=== PATIENT | male | born 1950 | race Caucasian/White ===

== ENCOUNTER → 2017-01-20 | Outpatient (CLI) | payer BC ==
[~2017-01-20] MED LIST: AMLO-110 PO; ASPCH81X PO; CZR50 PO; GLC/500 PO; LIRA18IN SQ; METF1TAB53 PO; MULT-506 PO; ROSU5TAB PO
== END | disposition home or self-care (01) ==
LOC: C.RDSM 08:32
PROVIDERS: ATTEND Physical Medicine & Rehabilitation Sports Medicine
DX: M25.562 Pain in left knee (principal)

== ENCOUNTER → 2017-01-20 | Outpatient (CLI) | payer BC ==
[2017-01-20 12:02] LABS: SYNOVIAL FLUID APPEARANCE CLEAR; SYNOVIAL FLUID COLOR YELLOW; SYNOVIAL FLUID MONONUC RELAT 82.7 %; SYNOVIAL FLUID POLYNUC RELAT 17.3 %
== END | disposition home or self-care (01) ==
LOC: C.LABSPEC 10:50
PROVIDERS: ATTEND Orthopaedic Surgery
DX: M25.562 Pain in left knee (principal)

== ENCOUNTER 2017-02-26 06:03 | Inpatient (IN) | payer BC ==
[2017-01-31 10:36] VITALS: BMI 38.0
--- NOTE | 2017-01-31 11:01 | PAT Medication Instructions ---
Service Date Jan 31, 2017. Current Home Medication List Amlodipine (Norvasc), 5 MG PO QAM Aspirin (Aspirin Chewable), 81 MG PO QPM Liraglutide (Victoza), 1.2 ML SQ QAM Losartan Potassium (Losartan Potassium), 50 MG PO HS Metformin Hcl (Glucophage), 500 MG PO QAM Metformin Hcl (Glucophage Ext Rel), 1,000 MG PO QPM Multivitamin (Multivitamin), 1 TAB PO QAM Rosuvastatin Calcium (Crestor), 5 MG PO QPM Medication Instructions For Your Scheduled Surgery - Hold the following medications 48 hours prior to surgery: Metformin Hcl (Glucophage), 500 MG PO QAM Metformin Hcl (Glucophage Ext Rel), 1,000 MG PO QPM - Hold the following medications the morning of surgery: Multivitamin (Multivitamin), 1 TAB PO QAM - Take the following medications the morning of surgery with a sip of water OTHERWISE NOTHING TO EAT OR DRINK AFTER MIDNIGHT: Amlodipine (Norvasc), 5 MG PO QAM Liraglutide (Victoza), 1.2 ML SQ QAM - Take the following medications as scheduled the night before surgery: Rosuvastatin Calcium (Crestor), 5 MG PO QPM Aspirin (Aspirin Chewable), 81 MG PO QPM - Do not take the following medications the night before surgery: Losartan Potassium (Losartan Potassium), 50 MG PO HS If you have any questions please call us at [phone] or [phone] or [phone]
--- NOTE | 2017-01-31 11:46 | DIAGNOSTIC IMAGING REPORT ---
CHEST PREADMISSION(PA/LAT) HISTORY: 66 years-old Male PAT preadmission study. Preoperative study for knee surgery. COMPARISON: None available TECHNIQUE: Frontal and lateral views of the chest FINDINGS: Cardiomediastinal and hilar silhouettes are within normal limits. There is mild right hemidiaphragmatic elevation. No pneumothorax, pleural effusion, focal airspace consolidation or overt pulmonary edema. Bones appear intact. Cannulated screw is noted about the right shoulder. IMPRESSION: No acute cardiopulmonary process. The above report was generated using voice recognition software. It may contain grammatical, syntax or spelling errors. Electronically signed by: Hermelindo Reyes M.D. 01/31/2017 11:45 AM Dictated Date/Time: 01/31/2017 11:44 AM
[2017-01-31 12:15] LABS: BASO % 0.4 %; BASO ABS # 0.04 K/uL (0-0.2); COMPLETE YES; EOS % 1.9 %; HEMATOCRIT 41.7 % (42-52); IG% 0.2 %; LYMPH % 22.2 %; MEAN CELL VOLUME 83.7 fL (80-100); MEAN CORPUSCULAR HEMOGLOBIN 29.7 pg (25-34); MEAN CORPUSCULAR HGB CONC 35.5 g/dl (32-36); MEAN PLATELET VOLUME 11.4 fL (7.4-10.4); MONO % 7.9 %; NEUT % 67.4 %; PLATELET COUNT 232 K/uL (130-400); RED BLOOD COUNT 4.98 M/uL (4.7-6.1); WHITE BLOOD COUNT 9.02 K/uL (4.8-10.8)
[2017-01-31 12:24] LABS: URINE APPEARANCE CLEAR (CLEAR); URINE BILIRUBIN NEG (NEG); URINE COLOR DK YELLOW; URINE EPITHELIAL CELL AUTO >30 /lpf (0-5); URINE NITRITE NEG (NEG); URINE PH 5.5 (4.5-7.5); URINE SPECIFIC GRAVITY 1.028 (1.000-1.030); UROBILINOGEN NEG (NEG)
[2017-01-31 12:27] LABS: MANUAL MICROSCOPIC REQUIRED? NO; REVIEW REQ? NO
[2017-01-31 12:29] LABS: PARTIAL THROMBOPLASTIN RATIO 1.1; PROTHROMBIN TIME (PATIENT) 10.7 SECONDS (9.0-12.0)
[2017-01-31 13:24] LABS: BUN/CREATININE RATIO 19.5 (10-20); CALCIUM 10.1 mg/dl (8.5-10.1); CREATININE 1.1 mg/dl (0.60-1.40); POTASSIUM 4.4 mmol/L (3.5-5.1)
--- NOTE | 2017-02-10 17:55 | HISTORY & PHYSICAL EXAMINATION ---
DATE OF ADMISSION: 02/26/2017 CHIEF COMPLAINT: Left knee DJD. HISTORY OF PRESENT ILLNESS: This 66-year-old white male presents for evaluation of his left knee. He has had left knee pain since 03/05/2016. He was climbing up a ladder to his tree stand at that time and felt a pop in his knee. He had pain and swelling at that point. He had subsequent conservative care with physical therapy and cortisone injection without lasting relief. He eventually had an MRI indicating a possible medial meniscal tear. He had knee arthroscopy with drilling of his medial tibial plateau and bone grafting using allograft. The pain never resolved and the swelling continued. He eventually had a CT scan showing fracture of the medial tibial plateau with depression of the articular surface. The pain persists. It is affecting his ADLs. Pain is worse with any weightbearing activity. He elects to proceed with total knee arthroplasty in hopes of alleviating his pain. Preoperative imaging has been obtained. No numbness or tingling. PAST MEDICAL HISTORY: Significant for hypertension, elevated cholesterol, type 2 diabetes, history of kidney stones, and osteoarthritis. PAST SURGICAL HISTORY: Left knee arthroscopy with tibial bone grafting, right shoulder surgery, trigger finger releases to both hands, tonsillectomy, cholecystectomy, carpal tunnel release, back surgery. ALLERGIES: NKDA. CURRENT MEDICATIONS: Amlodipine 5 mg p.o. daily, aspirin 81 mg p.o. daily, losartan 50 mg p.o. daily, multivitamin daily, rosuvastatin 5 mg p.o. daily, and Victoza 1.8 mg daily, metformin 1000 mg p.o. daily, metformin 500 mg p.o. daily. SOCIAL HISTORY: The patient is retired. 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 No tobacco use, no ETOH use. . REVIEW OF SYSTEMS: Significant for diabetes, otherwise unremarkable. Significant for above-stated conditions, otherwise unremarkable. PHYSICAL EXAMINATION: GENERAL: Well-developed, well-nourished middle aged white male in no acute distress. Sitting on a bed. Alert and oriented. Large individual. SKIN: Warm and dry with good turgor. No rashes or lesions. No ecchymosis or erythema. Well-healed surgical scars on the left knee and right shoulder. HEENT: Normocephalic, atraumatic. Eyes PERRLA, EOMI. Nares patent bilaterally without turbinate enlargement. Oropharynx without erythema or exudate. No lesions noted. Uvula midline. Oral mucosa moist. Good dentition. Dental caps and fillings are noted. HEART: RRR. No MGR. LUNGS: Clear to auscultation bilaterally. No crackles, rhonchi or wheezing. Good air movement. ABDOMEN: Bowel sounds present x4, soft, nontender. No organomegaly. No masses. MUSCULOSKELETAL: Left knee has full terminal extension. Flexion to greater than 100 degrees. Strength is 5/5 with good quad tone. Small joint effusion is present. Stable collateral ligaments. Focal discomfort with palpation over the medial joint line. Ambulatory with a slight limp. No defect in the patellar tendon or quadriceps tendon. NEUROLOGIC: Cranial nerves II through XII are intact. Gross sensation is intact across the lower extremities by soft touch. Peripheral pulses are 2+. DATA: Radiographic imaging previously obtained showed a depression of the medial tibial plateau along with evidence of prior bone grafting. He has medial joint space narrowing and periarticular osteophytes, as well as subchondral sclerosis. IMPRESSION: Left knee end-stage degenerative joint disease. PLAN: Informed written consent will be obtained on the day of surgery. Anticipate discharge to home with outpatient PT. Prescription has been provided. He may reconsider and choose home health. He already has a walker. Preoperative lab work, EKG, and chest x-ray have been ordered. Medical clearance has been requested from his PCP, Dr. Anders. Postoperative prescriptions for Percocet and Coumadin will be provided at discharge from the hospital. VALENTIN
[~2017-02-26] VITALS: Ht 182.9 cm; Wt 128.9 kg
[2017-02-26] VITALS (9 sets, daily range): BP systolic 130–159; BP diastolic 73–88; PULSE 73–102; TEMP 36.4–36.9; O2SAT 95–99; Ht 182.9 cm; Wt 128.9 kg
[~2017-02-26 06:03] MED LIST changes: +CEFAZOLIN 3000MG IV PUSH 15 ML IV SCH; +LACTATED RINGER'S 1000ML 1,000 ML IV SCH; +LACTATED RINGER'S 1000ML 500 ML IV ONE; +LACTATED RINGER'S 1000ML IV SCH; +ROPIVACAINE 5MG/ML 30 ML 150 MG, BUPIVACAINE/EPINEPHR 0.5% MPF 30 ML, KETOROLAC TROMETH... INFIL SCH; +TRANEXAMIC ACID INJ 1,000 MG in SODIUM CHLORIDE 0.9% 100ML 100 ML IV SCH
--- NOTE | 2017-02-26 06:27 | History & Physical Bridge Note ---
H&P Re-Evaluation Bridge Note: I have examined the patient, reviewed the History & Physical and in the interval since the performance of the History & Physical I have noted the following changes of clinical significance: consent reviewed.No changes noted
[2017-02-26] MEDS: TRANEXAMIC ACID INJ 1,000 MG in SYRINGE 0 ML IV SCH ×2 (06:30→07:59)
[2017-02-26] MEDS ORDERED: MIDAZOLAM HCL 1 MG/ML 2ML VIAL ONE ×2 (07:24)
[2017-02-26] MEDS ORDERED: FENTANYL CITRATE INJ 50 MCG/1 ML 2 ML VIAL ONE (07:24)
[2017-02-26] MEDS ORDERED: LIDOCAINE HCL 2% 2 ML VIAL (20MG/ML) ONE (07:25)
[2017-02-26] MEDS ORDERED: EpHEDrine SULFATE 50MG/5ML SYR ONE (07:25)
[2017-02-26] MEDS ORDERED: PROPOFOL IV EMULSION 10 MG/ML 20 ML VIAL IV ONE ×2 (07:25→09:28)
[2017-02-26] MEDS ORDERED: PHENYLEPHRINE 100MCG/ML 5ML SYR ONE (07:25)
[2017-02-26] MEDS ORDERED: BUPIVACAINE 0.5 % 5 MG/1 ML PF 10ML VIAL ONE (07:31)
[2017-02-26] MEDS ORDERED: BUPIVACAINE 0.25% 30 ML VIAL ONE (07:32)
[2017-02-26] MEDS ORDERED: ORTHO JOINT ANESTHETIC ONE (08:18)
[2017-02-26] MEDS ORDERED: POVIDONE-IODINE OP SOLN 30 ML BTL ONE (08:19)
[2017-02-26] MEDS ORDERED: ATROPINE SULFATE 0.1 MG/ML 5ML SYR IV PRN (08:45)
[2017-02-26] MEDS ORDERED: FENTANYL CITRATE INJ 50 MCG/1 ML 2 ML VIAL IV PRN (08:45)
[2017-02-26] MEDS ORDERED: ONDANSETRON INJ 2 MG/ML 2 ML VIAL IV PRN ×2 (08:45→10:15)
[2017-02-26] MEDS ORDERED: EpHEDrine SULFATE INJ 50 MG/ML AMP IV PRN (08:45)
[2017-02-26] MEDS ORDERED: SODIUM CHLORIDE 0.9% 1000ML 1,000 ML IV SCH (10:12)
[2017-02-26] MEDS ORDERED: TRANEXAMIC ACID INJ 1,000 MG in SODIUM CHLORIDE 0.9% 100ML 100 ML IV SCH (10:15)
[2017-02-26] MEDS ORDERED: TAMSULOSIN HCL 0.4 MG CAP PO PRN (10:15)
[2017-02-26] MEDS ORDERED: METOCLOPRAMIDE HCL INJ 5 MG/ML 2 ML VIAL IV PRN (10:15)
[2017-02-26] MEDS ORDERED: BISACODYL 10 MG SUPP PR PRN (10:15)
[2017-02-26] MEDS ORDERED: ALUMINUM/MAGNESIUM/SIMETH (MAALOX MAX) 30 ML UDC PO PRN (10:15)
[2017-02-26] MEDS ORDERED: OXYCODONE HCL IR 5 MG TAB (IMMEDIATE RELEASE) PO PRN (10:15)
[2017-02-26] MEDS ORDERED: MoRPHine SULFATE 2 MG/ML CARP IV PRN (10:15)
[2017-02-26] MEDS ORDERED: MAGNESIUM HYDROXIDE SUSP 30 ML UDC PO PRN (10:15)
[2017-02-26] MEDS ORDERED: ACETAMINOPHEN 325 MG TAB PO PRN (10:15)
[2017-02-26] MEDS ORDERED: DiphenhydrAMINE HCL 50 MG/ML VIAL IV PRN (10:15)
--- NOTE | 2017-02-26 10:26 | OPERATIVE REPORT ---
DATE OF OPERATION: 02/26/2017 SURGEON: Garth Portillo MD. [employer] HISTORY PROFESSOR: Jamey Suh PA-C. No resident or fellow available. PREOPERATIVE DIAGNOSIS: Osteoarthritis, left knee. POSTOPERATIVE DIAGNOSIS: Osteoarthritis, left knee.. OPERATION PERFORMED: Cemented left total knee replacement. PERIOPERATIVE SITUATION: Medically cleared male with intractable knee pain who had failed a chondral supportive procedure with calcium pyrophosphate done elsewhere, has end-stage disease. At this point in time, he has been worked up for infection and there is nothing there. Cultures obtained preoperatively revealed nothing. At this point in time wants to proceed with surgical treatment. Options were made to have additional implants as needed based on the findings at time of surgery. SUMMARY OF IMPLANTS: Size 5 posterior cruciate substituting femur, size 5 tibial rotating platform tray, oval domed 3 pegged patella size 41, tibial insert size 5, 12.5 mm thick, posterior cruciate substituting. Two bags of Palacos G cement. DESCRIPTION OF PROCEDURE: The patient appropriately identified, site verified, consent verified, 3 grams of Ancef confirmed as being given. The left lower extremity was prepped and draped in usual routine fashion. He had a flexion contracture, so it was elected to resect the distal femur to 14 mm. Tourniquet was inflated to 300 mmHg for a total of approximately 55 minutes. Anterior exposure of the knee then made. Parapatellar arthrotomy performed. Appropriate synovectomy completed, soft tissue releases completed. Distal femur entered, cruciates resected. The distal femur then resected to 14 mm. Proximal tibia then resected 4 mm to size 5 fit well on the tibia. The extension gap was excellent. The size 5 cutting block applied and the anterior, posterior condylar and chamfer cuts then made and the flexion gap was checked. It was excellent. The box cut was then made and then the size 5 trial fit well. The tibia was then broached and reamed to a 5. Excellent coverage was obtained. The area of the old injection was solidified. There was no sign of any stress fracture below it. The tibia again was impacted into position and with the 12.5 mm spacer there was excellent mid range stability and full extension and full flexion. There was no varus valgus laxity at 0 to 30 degrees. The patella was then sized to 41, it was resected leaving 15 mm and then the seating holes made and the trial tracked well. All trial implants were then removed. The wound was then injected with the Orthomix. It was then irrigated with Pulsavac, irrigated with Betadine, irrigated with Pulsavac and permanent cemented into position. After 12 minutes, the tourniquet deflated. After 14 minutes, the knee then flexed. Minor cement removal occurred, irrigated with Betadine, a permanent liner seated, the knee reduced and closed using #1 Ethibond, #1 Vicryl, 2-0 Vicryl and stainless steel clips. The patient tolerated the procedure well. ESTIMATED BLOOD LOSS: 50 mL. CRYSTALLOID: Per anesthesia report. DEEP VENOUS THROMBOSIS PROPHYLAXIS: Per protocol. I attest to the content of the Intraoperative Record and any orders documented therein. Any exception s are noted below.
--- NOTE | 2017-02-26 10:53 | DIAGNOSTIC IMAGING REPORT ---
LEFT KNEE 2 VIEWS CLINICAL HISTORY: Degenerative arthritis. Postoperative study. COMPARISON: 01/20/2017 DISCUSSION: There are postsurgical changes of a total left knee arthroplasty and patellar resurfacing. The femoral and tibial components appear well seated. There are overlying skin tenisha. There is air within the soft tissues consistent with recent surgery. IMPRESSION: Postsurgical changes of a total left knee arthroplasty. Electronically signed by: Marvin Ha M.D. 02/26/2017 10:52 AM Dictated Date/Time: 02/26/2017 10:50 AM
--- NOTE | 2017-02-26 11:05 | Anesthesiology Progress Note ---
Anesthesia Post Op Note Date & Time Feb 26, 2017 at 11:05 Vital Signs Pain Intensity: 0 Vital Signs Past 12 Hours Date Time Temp Pulse Resp B/P (MAP) Pulse Ox O2 Delivery O2 Flow Rate FiO2 02/26/17 11:00 77 18 141/77 98 Nasal Cannula 2 02/26/17 10:50 36.3 78 13 134/78 98 Nasal Cannula 2 02/26/17 10:40 80 19 124/79 98 Nasal Cannula 2 02/26/17 10:30 87 19 145/96 95 Nasal Cannula 2 02/26/17 10:20 91 17 118/70 99 Oxymask 10 02/26/17 10:12 36.5 86 16 123/66 100 Oxymask 10 02/26/17 06:50 36.9 86 20 157/85 99 Room Air Notes Mental Status: alert / awake / arousable, participated in evaluation Pt Amnestic to Procedure: Yes Nausea / Vomiting: adequately controlled Pain: adequately controlled Airway Patency, RR, SpO2: stable & adequate BP & HR: stable & adequate Hydration State: stable & adequate Neuraxial Anesthesia: was administered, sensory block is resolving Anesthetic Complications: no major complications apparent
[2017-02-26] MEDS ORDERED: MoRPHine SULFATE 4 MG/ML 1 ML CARP\\VIAL IV PRN (11:45)
--- NOTE | 2017-02-26 12:24 | Progress Note ---
Subjective Date of Service: Feb 26, 2017. Subjective Pt evaluation today including: conversation w/ patient, conversation w/ family , physical exam, chart review, lab review, review of inpatient medication list feeling good post op no significant pain yet notes sugars typically well controlled - last A1c 7.2% just a few weeks ago. fasting sugars tend to be a bit higher as high as 160, rest of the day checks premeal and typically around 100. does not check after eating, although has encouraged him to do so. no other complaints at this time Review of Systems all other ROS otherwise negative except for as above Objective Vital Signs Date Time Temp Pulse Resp B/P (MAP) Pulse Ox O2 Delivery O2 Flow Rate FiO2 02/26/17 12:00 73 18 143/82 (102) 02/26/17 11:15 Nasal Cannula 2.0 02/26/17 11:15 36.4 74 18 147/80 (102) 96 Nasal Cannula 2.0 02/26/17 11:15 96 Nasal Cannula 2.0 02/26/17 11:00 77 18 141/77 98 Nasal Cannula 2 02/26/17 10:50 36.3 78 13 134/78 98 Nasal Cannula 2 02/26/17 10:40 80 19 124/79 98 Nasal Cannula 2 02/26/17 10:30 87 19 145/96 95 Nasal Cannula 2 02/26/17 10:20 91 17 118/70 99 Oxymask 10 02/26/17 10:12 36.5 86 16 123/66 100 Oxymask 10 02/26/17 06:50 36.9 86 20 157/85 99 Room Air Physical Exam General Appearance: no apparent distress Eyes: EOMI ENT: hearing grossly normal Neck: trachea midline Respiratory/Chest: no respiratory distress, no accessory muscle use 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 as tested, alert, normal mood/affect Skin: normal color, warm/dry Laboratory Results Last 24 Hours Test 02/26/17 06:48 02/26/17 10:16 02/26/17 11:57 Bedside Glucose 173 mg/dl 166 mg/dl 179 mg/dl Assessment and Plan HTN -hold ACEi for now until tomorrow's labs -- as long as no rise in creatinine and remains hemodynamically stable, then can initiate DM2 -good baseline control -insulin management while inpatient, would resume home meds at time of discharge -discussed critical role of lifestyle in control/prevention of progression/even regression of DM2 -- suggested checking 2hr postprandials at home w goal of <150 , when sugars run high then can look at what he just ate to learn/change diet DVT proph -per ortho
--- NOTE | 2017-02-26 12:27 | [facility] Operative Report ---
Operative Report Operative Date Feb 26, 2017. Pre-Operative Diagnosis Left Knee Degenerative Joint Disease Post-Operative Diagnosis Same as preop Procedure(s) Performed Left Total Knee Arthroplasty Surgeon Dr. Portillo Roof Bolter Helper Surgeon(s) Jamey Suh PA-C Estimated Blood Loss 50 ml Findings Left knee DJD Specimens A. Left Knee Bone and Tissue Drains none Complication(s) None Disposition Recovery Room / PACU Indications This 66-year-old white male presented to the office with complaints of intractable left knee pain. He had tried conservative care measures including previous arthroscopy, activity modification, and oral pain medication, without success. He elected to proceed with surgical intervention after being educated about potential risks and outcomes. Preoperative imaging was obtained. Description of Procedure Patient was administered a spinal anesthetic and then taken to the operating room where he was given sedation. He was prepped and draped in usual sterile fashion. Please see Dr. Portillo's operative report for specifics of the procedure. I was present for the entire case from initial patient positioning through final wound closure. Assistance was provided in tissue traction, hemostasis, trial implant placement, final implant placement, and final wound closure. Patient was taken to the recovery room in satisfactory condition. I attest to the content of the Intraoperative Record and any orders documented therein. Any exceptions are noted below.
[2017-02-26] MEDS: INSULIN ASPART 100 UNITS/ML 3 ML PEN SC SCH ×4 (12:42→22:37)
[2017-02-26] MEDS: FERROUS GLUCONATE 324 MG TAB PO SCH ×2 (12:48→19:12)
[2017-02-26] MEDS: KETOROLAC TROMETHAMINE 30 MG/ML VIAL IV. SCH ×2 (12:59→19:12)
--- NOTE | 2017-02-26 13:00 | PROGRESS NOTE ---
DATE: 02/26/2017 SUBJECTIVE: Postop check status post left total knee replacement. He is sitting up in bed eating lunch. He feels comfortable and is in minimal pain. Vital signs are stable. He is afebrile. Neurovascular check femoral sciatic nerve is excellent. Postop x-rays look great. No issues. ASSESSMENT: Doing well. Hep-Lock IV if he eats well. Normalized.
[2017-02-26] MEDS ORDERED: WARF2TAB PO (14:01)
[2017-02-26] MEDS ORDERED: OXYC-57 PO (14:01)
[2017-02-26] MEDS ORDERED: NURSING VERBAL MED ORDER ONE (15:00)
[2017-02-26] MEDS ORDERED: TRANEXAMIC ACID INJ 1,000 MG in SYRINGE 0 ML IV SCH (16:00)
[2017-02-26] MEDS ORDERED: WARFARIN SOD 5 MG TAB PO SCH (16:00)
[2017-02-26] MEDS: CEFAZOLIN IV 2,000 MG in SYRINGE 0 ML IV SCH (16:13)
[2017-02-26] MEDS ORDERED: ROSUVASTATIN CALCIUM 10 MG TAB PO SCH (21:00)
[2017-02-26] MEDS ORDERED: ASPIRIN 81 MG CHEW PO SCH (21:00)
[2017-02-26] MEDS: DOCUSATE SODIUM 100 MG CAP PO SCH (21:00)
[2017-02-26] MEDS ORDERED: LOSARTAN POTASSIUM 50 MG TAB PO SCH (21:00)
[2017-02-27] MEDS: CEFAZOLIN IV 2,000 MG in SYRINGE 0 ML IV SCH (00:13)
[2017-02-27] MEDS: KETOROLAC TROMETHAMINE 30 MG/ML VIAL IV. SCH ×2 (00:21→06:28)
[2017-02-27 03:30] VITALS: BP 148/76; PULSE 95; TEMP 36.7; O2SAT 96
[2017-02-27 06:12] LABS: HEMATOCRIT 36.6 % (42-52); MEAN CELL VOLUME 84.7 fL (80-100); MEAN CORPUSCULAR HEMOGLOBIN 28.7 pg (25-34); MEAN CORPUSCULAR HGB CONC 33.9 g/dl (32-36); MEAN PLATELET VOLUME 10.7 fL (7.4-10.4); PLATELET COUNT 224 K/uL (130-400); RED BLOOD COUNT 4.32 M/uL (4.7-6.1); WHITE BLOOD COUNT 13.78 K/uL (4.8-10.8)
--- NOTE | 2017-02-27 06:34 | PROGRESS NOTE ---
DATE: 02/27/2017 Postop check status post left total knee replacement. The patient is doing well, has no issues. Is sitting up in the chair. Denies chest pain, shortness of breath, fever, chills, nausea, vomiting or headache. Vital signs are stable, he is afebrile. Neurovascular check is normal. Can do a straight leg raise. Calves nontender. Abdomen nontender. Hematocrit stable at 36.6. INR is pending. Chemistry is pending. ASSESSMENT: Doing well. We will discharge today after PT/OT and social service assessment. Discharge on 4 mg Coumadin if INR is less than 1.5, 2 mg if greater than 1.5. Check INR on Friday.
[2017-02-27 06:38] LABS: PROTHROMBIN TIME (PATIENT) 11.1 SECONDS (9.0-12.0)
--- NOTE | 2017-02-27 06:38 | DISCHARGE SUMMARY ---
CHIEF COMPLAINT: Left knee osteoarthritis. HISTORY OF PRESENT ILLNESS: A 66-year-old male admitted for elective left total knee replacement. Hospital course has been uneventful. PAST MEDICAL HISTORY: Remarkable for hypertension, elevated cholesterol, type 2 diabetes, kidney stones and osteoarthritis. PAST SURGICAL HISTORY: Remarkable for arthroscopy, bone grafting of his tibia, right shoulder surgery, trigger finger releases of his hands, tonsillectomy, cholecystectomy, carpal tunnel release and back surgery. ALLERGIES: None. PREADMISSION MEDICATIONS: Include amlodipine 5 mg daily, aspirin 81 mg daily, losartan 50 mg daily, multivitamin, statin drug 5 mg daily, Victoza 1.8 mg daily, metformin 1000 mg daily, metformin 500 mg daily. 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 No tobacco or alcohol use. He is . REVIEW OF SYSTEMS: Noncontributory. Denies chest pain, shortness of breath, fever, chills, nausea, vomiting or headache. Hospital course has been uneventful. ASSESSMENT: Status post left total knee replacement, doing well. Discharge today after PT, OT. Discharge on 4 mg of Coumadin if INR is less than 1.5 and 2 mg if greater than 1.5. Check INR on Friday pressure dressing until Friday or Friday.
[2017-02-27 06:41] LABS: BUN/CREATININE RATIO 17.9 (10-20); CALCIUM 8.7 mg/dl (8.5-10.1); CREATININE 1.18 mg/dl (0.60-1.40)
[2017-02-27 07:25] VITALS: BP 151/85; PULSE 87; TEMP 36.8; O2SAT 96
[2017-02-27] MEDS ORDERED: DEXAMETHASONE INJ 10 MG in SYRINGE 0 ML IV ONE (07:30)
[2017-02-27] MEDS ORDERED: LOSARTAN POTASSIUM 25 MG TAB PO ONE (08:00)
[2017-02-27] MEDS: DOCUSATE SODIUM 100 MG CAP PO SCH (08:30)
[2017-02-27] MEDS: FERROUS GLUCONATE 324 MG TAB PO SCH (08:30)
[2017-02-27] MEDS: INSULIN ASPART 100 UNITS/ML 3 ML PEN SC SCH ×2 (08:35→09:06)
--- NOTE | 2017-02-27 08:48 | Discharge Instructions ---
Discharge Instructions Date of Service Feb 26, 2017. Admission Reason for Admission: Left Knee Degenerative Joint Disease Discharge Discharge Diagnosis / Problem: left knee s/p total knee replacement Discharge Goals Goal(s): Decrease discomfort, Improve function, Increase independence Activity Recommendations Activity Limitations: as noted below Lifting Limitations: gradually increase as tolerated Exercise/Sports Limitations: until after follow-up appointment Shower/Bathe: keep incision dry Driving or Machine Use: No driving until cleared by Dr. Portillo Weightbearing Status: Left weightbearing (as tolerated) . Instructions / Follow-Up Instructions / Follow-Up New Medicine: * You will likely be taking one or more of these medications: 1. Percocet - Take, as directed, when you need it, every four to six hours to control your pain. 2. Coumadin - Thins your blood to lessen the chance of forming a blood clot. The dose of this is different for each person and is based on your blood tests that are done twice a week. * The most common side effects of pain medicine and iron are nausea and constipation. If nausea or constipation is too much of a problem or if you have any questions about your new medicines or doses, call [facility] at . We will try to help you manage these issues. VERY IMPORTANT TO READ AND REVIEW" Blood Clots and Blood Thinning Medicine: * You are given Coumadin during the immediate post-operative period to lessen the risk of blood clots forming in your legs and/or lungs. Coumadin is usually given for six weeks after surgery. * The prescription is for 2 mg tablets. At discharge, you should understand your dose and take it all at the same time every day, preferably after dinner. * You need to get your blood checked 1 - 2 times per week for six weeks or as directed. * If your dose needs to change, we will call you. Do not take your medication on the day of the blood test until we call you. Pain: * The immediate post-operative period after knee replacement surgery is often quite painful. * You are given a prescription for pain medicine. You should take it, as directed, when you need it, especially before physical therapy and before going to bed. Pain that interferes with sleep is very common and can last several months. * You will likely need pain medicine for the first four to six weeks. It will not stop all of the pain. The pain will lessen and as you feel better, you may change to milder pain medicine such as Tylenol. * The most common side effects of pain medicine are nausea and constipation, so don't take more than you need. Physical Therapy: * You will have physical therapy two or three times each week for four to six weeks after your surgery in order to regain your knee range of motion and to retrain your knee to work properly. * It is just as important to make sure you are getting your knee perfectly straight as it is to regain your knee bend. * Taking a pain pill an hour before therapy can help you have a more productive and comfortable therapy session if needed. Home Exercise: * You were shown a series of exercises (heel props, heel slides, etc.) in the hospital. Do these exercises three to four times each day including the exercises you were shown in physical therapy. Walking: * Get up and walk several times each day. For the first four weeks, try not to stand or walk for more than one hour at a time. If you do stand or walk for more than one hour, you will not hurt anything, but your knee and leg will likely swell. * As you feel comfortable, you may change from the walker or crutches to a cane and then to independent walking. SELF CARE INSTRUCTIONS AFTER TOTAL KNEE REPLACEMENT A. You may need to continue a physical therapy program after discharge from the hospital. There are several options available to you. Your doctor will assist you in selecting the best one for you. 1. An out-patient facility 2 to 3 times a week for therapy or home therapy. 2. Continue working on all exercises taught to you in the hospital. Your goals should be to increase bending of your knee to 90 degrees and beyond and to fully straighten your knee. B. You may progress at your own pace from walking with a walker or crutches to a cane; then to no assistive devices. C. Make walking a part of your daily routine. Be up as much as comfortable with rest periods throughout the day. Rest with leg elevation is very important. Use the ice wrap frequently for the first 3-4 weeks. D. There are no restrictions on activities. You may ride in a car, shop, participate in environmental remediation engineer and all social activities. E. Wear the long elastic stockings (SAMINA hose) 20 hours a day for six weeks after surgery. They can be removed several times a day for laundering and for a shower. F. Do not place a pillow behind your knee when resting. A pillow at your ankle is okay. VERY IMPORTANT TO READ AND REVIEW A. Take Coumadin, Aspirin or Lovenox (blood thinning medications) as directed by your doctor. If on Coumadin, have a pro-time (blood test) drawn according to your doctor's instructions. This will tell the doctor how well the Coumadin is thinning your blood. 1. YOU WILL BE GIVEN AN ORDER AT DISCHARGE FOR PT/INR (BLOOD WORK). PLEASE HAVE THIS DONE INSTRUCTED. PLEASE CALL OUR OFFICE AFTER YOUR BLOODWORK IS COMPLETE SO WE CAN TRACK YOUR RESULTS. IF YOU ARE GOING TO OUTPATIENT PHYSICAL THERAPY, YOU WILL NEED TO GO TO OUTPATIENT TESTING TO HAVE IT DRAWN. B. There are a few signs you need to watch for after you are home. Call [facility] if you notice any of the followin. Increased severe knee pain. Some pain is expected especially when you exercise. 2. Increased swelling in your leg or knee; pain or swelling of the calf muscle in either lower leg. 3. Any fluid drainage from the incision. 4. Shortness of breath or chest pain. C. Please call [facility] at if you have any concerns or questions about your operation or recovery. The doctor or his nurse will return your call promptly. D. You must take antibiotics before dental work, bladder, bowel or other surgery. Call the office to obtain a prescription at least 2 days prior to your appointment. * CALL IF INCREASED PAIN, REDNESS, DRAINAGE OR FEVER GREATER THAT 101. * Sutures should be removed 12-14 days after surgery unless you are on chronic steriods, then it will be 14-18 days after surgery. Call your doctor if: * Temperature above 101 degrees F. * Pain not relieved by pain medicine ordered. * Increased drainage or redness from incision. * Notify your doctor with any questions or concerns. Current Hospital Diet Patient's current hospital diet: Diabetes Type 2 Diet Discharge Diet Recommended Diet: Diabetes Type 2 Diet Procedures Procedures Performed: Left Total Knee Arthroplasty Pending Studies Studies pending at discharge: no Medical Emergencies . Who to Call and When: Medical Emergencies: If at any time you feel your situation is an emergency, please call 911 immediately. . Non-Emergent Contact Non-Emergency issues call your: Primary Care Provider, Surgeon Call Non-Emergent contact if: temperature is above 101, wound has increased drainage, wound has increased redness, wound has increased pain, you have any medication questions . "Provider Documentation" section prepared by Jamey Suh PA-C. . VTE Core Measure Inpt VTE Proph given/why not?: Warfarin (Coumadin), T.E[employer] Stockings, SCD's [place] Drug Monitoring Program Search Results: no issues identified
--- NOTE | 2017-02-27 08:51 | Orthopedic Progress Note ---
Orthopedic Progress Note Date of Service Feb 27, 2017. Subjective Post OP Day: 1 Reports: feeling well, pain controlled w PO medications, Denies: complaints, chest pain, SOB, nausea / vomiting, light headedness, calf pain Additional Notes: Pt has already finished breakfast, is in good spirits. Objective calves soft nontender, N/V intact, capillary refill less than 2 sec., dressing C /D/I, incision C/D/I, A&O x3, toes mobile, CMS intact scant drainage on bandages, no active drainage. Date Time Temp Pulse Resp B/P (MAP) Pulse Ox O2 Delivery O2 Flow Rate FiO2 02/27/17 07:25 36.8 87 16 151/85 (107) 96 Room Air 02/27/17 07:05 Room Air 02/27/17 03:30 36.7 95 18 148/76 (100) 96 Room Air 02/27/17 00:15 Room Air 02/26/17 23:00 36.7 101 16 137/81 (99) 95 Room Air 02/26/17 20:08 36.7 102 17 149/73 (98) 97 Room Air 02/26/17 16:05 Room Air 02/26/17 15:09 36.7 85 16 147/88 (107) 95 Room Air 02/26/17 14:15 83 18 148/85 (106) 98 02/26/17 13:15 80 18 159/88 (111) 96 02/26/17 12:15 75 18 130/81 (97) 98 02/26/17 12:00 73 18 143/82 (102) 02/26/17 11:15 Nasal Cannula 2.0 02/26/17 11:15 36.4 74 18 147/80 (102) 96 Nasal Cannula 2.0 02/26/17 11:15 96 Nasal Cannula 2.0 02/26/17 11:00 77 18 141/77 98 Nasal Cannula 2 02/26/17 10:50 36.3 78 13 134/78 98 Nasal Cannula 2 02/26/17 10:40 80 19 124/79 98 Nasal Cannula 2 02/26/17 10:30 87 19 145/96 95 Nasal Cannula 2 02/26/17 10:20 91 17 118/70 99 Oxymask 10 02/26/17 10:12 36.5 86 16 123/66 100 Oxymask 10 Laboratory Results 24 Hours: Test 02/27/17 05:55 Hematocrit 36.6 % Hemoglobin 12.4 g/dL Prothromb Time International Ratio 1.0 Prothrombin Time 11.1 SECONDS Assessment & Plan Assessment: Left knee post op day 1 total knee arthroplasty Plan: PT/OT today coumadin per nomogram D/C to home today with outpatient PT f/u in the office in 14 days for staple removal dressing changed this morning-wound looks very good leave dressings in place until Friday Discharge Planning Discharge Planning: home Pain Management: Percocet DVT Prophylaxis: TEDs, SCDs, Coumadin Therapy: Physical Therapy
[2017-02-27] MEDS ORDERED: MULTIVITAMIN TAB PO SCH (09:00)
[2017-02-27] MEDS ORDERED: PANTOprazole SOD 40 MG TAB PO SCH (09:00)
[2017-02-27] MEDS ORDERED: AMLODIPINE BESYLATE 5 MG TAB PO SCH (09:00)
[2017-02-27 09:43] VITALS: PULSE 87; TEMP 36.8; O2SAT 96
--- NOTE | 2017-02-27 10:38 | Hospitalist Progress Note ---
Hospitalist Progress Note Date of Service Feb 27, 2017. Subjective Pt evaluation today including: conversation w/ patient, physical exam, lab review, review of studies, review of inpatient medication list Voiding: no voiding problems Patient feeling well today. Sitting in bedside chair. +flatus postop, no BM. Eating and drinking OK. Pain is well controlled. Patient denies any fever, chills, sweats, lightheadedness, dizziness, vision changes, CP, palpitations, edema, SOB, wheezing, cough, abdominal pain, nausea, vomiting, diarrhea, urinary symptoms, melena, numbness/tingling, weakness, anxiety/depression, active bleeding, or new skin discoloration/changes. Medications Current Inpatient Medications Medications (Trade) Dose Ordered Sig/Karlene Route Start Time Stop Time Status Last Admin Dose Admin Ketorolac Tromethamine (Toradol Inj) 30 mg Q6H IV. 02/26/17 10:15 02/27/17 12:59 02/27/17 06:28 30 MG Oxycodone HCl (Roxicodone Immediate Rel Tab) 1 TABLET FOR PAIN RATING... Q4H PRN PO 02/26/17 10:15 03/12/17 10:14 02/26/17 20:55 10 MG Morphine Sulfate (MoRPHine SULFATE INJ) 2 mg Q1H PRN IV 02/26/17 10:15 03/12/17 10:14 Acetaminophen (Tylenol Tab) 650 mg Q6H PRN PO 02/26/17 10:15 03/28/17 10:14 Magnesium Hydroxide (Milk Of Magnesia Susp) 30 ml Q6H PRN PO 02/26/17 10:15 03/28/17 10:14 Bisacodyl (Dulcolax Supp) 10 mg DAILY PRN [place] 02/26/17 10:15 03/28/17 10:14 Docusate Sodium (coLACE CAP) 100 mg BID PO 02/26/17 21:00 03/28/17 20:59 02/27/17 08:30 100 MG Diphenhydramine HCl (Benadryl Inj) 25 mg Q8H PRN IV 02/26/17 10:15 03/28/17 10:14 Al Hydrox/Mg Hydrox/Simethicone (Maalox Max Susp) 15 ml Q4H PRN PO 02/26/17 10:15 03/28/17 10:14 Multivitamins (Multivitamin Tab) 1 tab QAM PO 02/27/17 09:00 03/29/17 08:59 02/27/17 08:30 1 TAB Ondansetron HCl (Zofran Inj) 4 mg Q6H PRN IV 02/26/17 10:15 03/28/17 10:14 Metoclopramide HCl (Reglan Inj) 10 mg Q6H PRN IV 02/26/17 10:15 03/28/17 10:14 Ferrous Gluconate (Ferrous Gluconate Tab) 324 mg TIDM PO 02/26/17 12:00 03/28/17 11:59 02/27/17 08:30 324 MG Pantoprazole Sodium (Protonix Tab) 40 mg QAM PO 02/27/17 09:00 03/29/17 08:59 02/27/17 08:30 40 MG Tamsulosin HCl (Flomax Cap) 0.4 mg QAM PRN PO 02/26/17 10:15 03/28/17 10:14 Amlodipine Besylate (Norvasc Tab) 5 mg QAM PO 02/27/17 09:00 03/29/17 08:59 02/27/17 08:30 5 MG Aspirin (Aspirin Chew) 81 mg QPM PO 02/26/17 21:00 03/28/17 20:59 02/26/17 21:00 81 MG Rosuvastatin Calcium (Crestor Tab) 5 mg QPM PO 02/26/17 21:00 03/28/17 20:59 02/26/17 21:01 5 MG Miscellaneous Information (Order Awaiting Action) 1 ea QS N/A 02/26/17 16:00 03/28/17 15:59 Insulin Aspart (novoLOG ASPART) SLIDING SCALE G... ACHS SC 02/26/17 11:00 03/28/17 10:59 02/27/17 09:06 8 UNITS Morphine Sulfate (MoRPHine SULFATE INJ) 4 mg Q1H PRN IV 02/26/17 11:45 03/12/17 11:44 Losartan Potassium (coZAAR TAB) 50 mg HS PO 02/27/17 21:00 03/29/17 20:59 Miscellaneous Information (Nursing Ortho Warfarin Nomogram Dose) 1 ea TODAY N/A 02/27/17 10:00 02/27/17 10:01 UNV Objective Vital Signs Date Time Temp Pulse Resp B/P (MAP) Pulse Ox O2 Delivery O2 Flow Rate FiO2 02/27/17 09:43 36.8 87 16 96 Room Air 02/27/17 07:25 36.8 87 16 151/85 (107) 96 Room Air 02/27/17 07:05 Room Air 02/27/17 03:30 36.7 95 18 148/76 (100) 96 Room Air 02/27/17 00:15 Room Air 02/26/17 23:00 36.7 101 16 137/81 (99) 95 Room Air 02/26/17 20:08 36.7 102 17 149/73 (98) 97 Room Air 02/26/17 16:05 Room Air 02/26/17 15:09 36.7 85 16 147/88 (107) 95 Room Air 02/26/17 14:15 83 18 148/85 (106) 98 02/26/17 13:15 80 18 159/88 (111) 96 02/26/17 12:15 75 18 130/81 (97) 98 02/26/17 12:00 73 18 143/82 (102) 02/26/17 11:15 Nasal Cannula 2.0 02/26/17 11:15 36.4 74 18 147/80 (102) 96 Nasal Cannula 2.0 02/26/17 11:15 96 Nasal Cannula 2.0 02/26/17 11:00 77 18 141/77 98 Nasal Cannula 2 02/26/17 10:50 36.3 78 13 134/78 98 Nasal Cannula 2 02/26/17 10:40 80 19 124/79 98 Nasal Cannula 2 02/26/17 10:30 87 19 145/96 95 Nasal Cannula 2 Physical Exam General Appearance: no apparent distress, + obese Eyes: normal inspection, PERRL ENT: hearing grossly normal Neck: supple Respiratory/Chest: lungs clear, no respiratory distress, no accessory muscle use Cardiovascular: regular rate, rhythm Abdomen: normal bowel sounds, non tender, soft Extremities: no pedal edema, no calf tenderness Neurologic/Psychiatric: alert, normal mood/affect, oriented x 3 Skin: normal color, warm/dry, no rash Laboratory Results Last 24 Hours Test 02/26/17 11:57 02/26/17 17:18 11/1/17 20:57 02/27/17 05:55 Bedside Glucose 179 mg/dl 202 mg/dl 201 mg/dl White Blood Count 13.78 K/uL Red Blood Count 4.32 M/uL Hemoglobin 12.4 g/dL Hematocrit 36.6 % Mean Corpuscular Volume 84.7 fL Mean Corpuscular Hemoglobin 28.7 pg Mean Corpuscular Hemoglobin Concent 33.9 g/dl RDW Standard Deviation 41.7 fL RDW Coefficient of Variation 13.7 % Platelet Count 224 K/uL Mean Platelet Volume 10.7 fL Prothrombin Time 11.1 SECONDS Prothromb Time International Ratio 1.0 Sodium Level 135 mmol/L Potassium Level 4.0 mmol/L Chloride Level 101 mmol/L Carbon Dioxide Level 25 mmol/L Anion Gap 9.0 mmol/L Blood Urea Nitrogen 21 mg/dl Creatinine 1.18 mg/dl Est Creatinine Clear Calc Drug Dose 87.8 ml/min Estimated GFR () 75.1 Estimated GFR (Non- 64.8 BUN/Creatinine Ratio 17.9 Random Glucose 225 mg/dl Calcium Level 8.7 mg/dl Test 02/27/17 08:07 Bedside Glucose 228 mg/dl Assessment and Plan Patient is a 66 y/o male, with PMHx of HTN, HLD, and T2DM, s/p L TKA by Dr. Portillo on 02/26. s/p L TKA by Dr. Portillo on 02/26: - Pain management, PT/OT, and DVT prophylaxis as per primary team - Postop CBC and PRP- STABLE T2DM- last HgbA1c 7.2%: - Metformin 500 mg QAM and 1000 QPM, Victoza 1.2 ml SQ daily held while inpatient- resume at discharge - BSG ACHS and ISS HTN: Continue Losartan 50 mg HS, Norvasc 5 mg daily HLD: Crestor 5 mg HS GI prophylaxis: Protonix 40 mg daily DVT prophylaxis: Coumadin as per surgical team Code Status: LEVEL I, FULL Dispo: Discharge to home w/ OPPT as per primary team- stable for discharge from medical standpoint
[2017-02-27] MEDS ORDERED: WARFARIN SOD 5 MG TAB PO ONE (10:45)
[2017-02-27 11:08] VITALS: BP 145/79
[2017-02-27] MEDS ORDERED: WARFARIN SOD 5 MG TAB PO SCH (16:00)
[2017-02-27] MEDS ORDERED: LOSARTAN POTASSIUM 50 MG TAB PO SCH (21:00)
== END 2017-02-27 11:46 | disposition home or self-care (01) | DRG 470 ==
LOC: C.ACU 06:03 → C.3E 06:20 → ENRESERV 10:57
PROVIDERS: ADMIT Physical Medicine & Rehabilitation Sports Medicine; ATTEND Physical Medicine & Rehabilitation Sports Medicine
PROC: 0SRD0J9 Replacement of Left Knee Joint with Synthetic Substitute, Cemented, Open Approach (ICD-10-PCS; principal; 2017-02-26 08:50)
DX: M17.12 Unilateral primary osteoarthritis, left knee (principal); M25.462 Effusion, left knee; I10 Essential (primary) hypertension; E11.9 Type 2 diabetes mellitus without complications; E78.00 Pure hypercholesterolemia, unspecified; E66.9 Obesity, unspecified; Z68.38 Body mass index [BMI] 38.0-38.9, adult; Z79.82 Long term (current) use of aspirin; Z79.84 Long term (current) use of oral hypoglycemic drugs; Z79.899 Other long term (current) drug therapy

== ENCOUNTER → 2017-04-14 | Outpatient (CLI) | payer BC ==
[~2017-04-14] MED LIST changes: -CEFAZOLIN 3000MG IV PUSH 15 ML IV SCH; -LACTATED RINGER'S 1000ML 1,000 ML IV SCH; -LACTATED RINGER'S 1000ML 500 ML IV ONE; -LACTATED RINGER'S 1000ML IV SCH; +OXYC-57 PO; -ROPIVACAINE 5MG/ML 30 ML 150 MG, BUPIVACAINE/EPINEPHR 0.5% MPF 30 ML, KETOROLAC TROMETH... INFIL SCH; -TRANEXAMIC ACID INJ 1,000 MG in SODIUM CHLORIDE 0.9% 100ML 100 ML IV SCH; +WARF2TAB PO
== END | disposition home or self-care (01) ==
LOC: C.RDSM 12:24
PROVIDERS: ATTEND Physical Medicine & Rehabilitation Sports Medicine
DX: Z96.652 Presence of left artificial knee joint (principal)